=== PATIENT | female | born 1985 | race Caucasian/White ===

== ENCOUNTER 2018-01-14 18:24 | Inpatient (IN) | payer BC ==
[2018-01-14] MEDS ORDERED: OBEPIDURAL* 250 ML EPIDURAL ONE (19:12)
[2018-01-14 19:13] LABS: ABS Basophils 0.1 10^3/ul (0-0.2); ABS Eosinophils 0.2 10^3/ul (0-0.6); ABS Monocytes 1.2 10^3/ul (0-0.8); ABS Neutrophils 12.3 10^3/ul (1.5-7.7); ABS Nucleated RBC 0 10^3/ul; Eosinophil % 1.1 % (0-6); Hematocrit 36 % (35-47); Hemoglobin 12.1 g/dl (12.0-16.0); Lymphocyte % 17.8 % (25-47); Mean Corpuscular HGB Conc 34 g/dl (31-36); Mean Corpuscular Hemoglobin 32 pg (27-31); Mean Corpuscular Volume 95 fL (80-97); Mean Platelet Volume 9.8 um3 (7.4-10.4); Nucleated Red Blood Cells % 0.1; Platelet Count 190 10^3/ul (150-450); Red Blood Count 3.73 10^6/ul (4.00-5.40); Red Cell Distribution Width 14 % (10.5-15); White Blood Count 16.7 10^3/ul (3.5-10.8)
[2018-01-14] MEDS ORDERED: Clindamycin 900 MG IVPREMIX(* 900 MG/50 ML SDV IV SCH (19:30)
[2018-01-14] MEDS ORDERED: Famotidine TAB* 20 MG PO PRN (19:37)
[2018-01-14] MEDS ORDERED: EPHEDrine (Pressors)* 50 MG/ML VIAL IV PUSH PRN ×2 (19:37)
[2018-01-14] MEDS ORDERED: Phenylephrine IV* 40 MCG/ML 10 ML SYRINGE IV PUSH PRN ×2 (19:37)
[2018-01-14] MEDS ORDERED: Sodium Citrate/Citric Acid* 15 ML UDC PO PRN (19:37)
[2018-01-14] MEDS ORDERED: OBEPIDURAL* 250 ML EPIDURAL SCH (20:00)
--- NOTE | 2018-01-14 22:06 | HP ---
General Information - General Information Maternal Age: 32 Grav: 2 Para: 1 SAB: 0 IEA: 0 Estimated Due Date: 01/24/18 Determined By: Early Ultrasound Gestational Age in Weeks and Days: 38 Weeks and 4 Days Maternal Blood Type and Rh: B Positive - Results this Serology/RPR Result: Non-Reactive Rubella Result: Immune HBsAg Result: Negative HIV Result: Negative GBS Culture Result: Positive Past Medical History Delivery History: Hx Complicated Vaginal Delivery - Incompetent cervix with PTD , See Records Pertinent Past Medical History: See Records Past Medical History Comment: Anxiety Pertinent Past Surgical History: See Records Past Surgical History Comment: None Pertinent Family History: Non-Contributory - Antepartal Records Antepartal Records: Reviewed, Complicated by: - Incompetent cervix managed with cerclage(removed at 36 wks) Review of Systems Constitutional: Comfortable CV Complaint: No Respiratory: Shortness of Breath: No Gastrointestinal: No Nausea/Vomiting, Normal Bowel Movement Genitourinary: No Dysuria, No Bleeding, No Leaking Fluid Musculoskeletal: No Complaint Neurological: No Headache Movement: Normal Exam Allergies/Adverse Reactions: Allergies amoxicillin Allergy (Verified 12/27/17 09:49) Hives ciprofloxacin [From Cipro] Allergy (Verified 12/27/17 09:49) Vomiting Penicillins Allergy (Verified 12/27/17 09:49) Hives Temp 97.8 BP 121/76 p 96 RR 20 Pox 100% RA Lab Values - Entire Visit: Laboratory Tests 01/14/18 01/14/18 18:55 18:55 WBC 16.7 H RBC 3.73 L Hgb 12.1 Hct 36 MCV 95 MCH 32 H MCHC 34 RDW 14 Plt Count 190 MPV 9.8 Neut % (Auto) 73.4 Lymph % (Auto) 17.8 L Todd % (Auto) 7.4 H Eos % (Auto) 1.1 Baso % (Auto) 0.3 Absolute Neuts (auto) 12.3 H Absolute Lymphs (auto) 3.0 Absolute Monos (auto) 1.2 H Absolute Eos (auto) 0.2 Absolute Basos (auto) 0.1 Absolute Nucleated RBC 0 Nucleated RBC % 0.1 Blood Type B Positive Antibody Screen Negative - Measurements Height: 5 ft 9 in Weight: 178 lb Weight in lbs: 178.785941 Body Mass Index (BMI): 26.2 Pre- Weight: 132 lb 0.01 oz Weight Gained This : 45.99 lbs and 0.15 ozs - Exam Abdomen: No Upper Quadrant Pain Breast: Breast Exam Deferred CVA: No CVA Tenderness Extremities: No Edema Heart: Normal Rhythm/Heart Sounds HEENT: No Significant Findings Lungs: Clear Bilaterally Rectal: Rectal Exam Deferred Reflexes: DTR 2+ Thyroid: No Thyromegaly - Abdominal Exam Abdomen Exam: Non-Tender, Fundal Height Consistent with Dates - Ultrasound/Biophysical Profile Ultrasound Status: Not Done Targeted Exam Findings See L&D Outpatient Visit Provider Note for Findings: N/A Cervical Exam: 7cm Effacement: 90% Station: 0 Presenting Part: Vertex Membrane Status: AROM Amniotic Fluid Evaluation: Clear Bleeding/Discharge: None EFM Findings - External Monitor Findings Baseline Heart Rate: 130 External Monitor Findings: Accelerations Present, No Pattern of Variable or Late Decelerations Contractions: Regular, Moderate, < 45 Seconds Assessment/Plan - Reason for Visit Reason for Visit: Patient in labor - Obstetrical Risk Factors Obstetrical Risk Factors: GBS Positive - Plan Plan: Active Labor, Antibiotic Prophylaxis Plan Comment: Expect spontaneous vaginal delivery - Date/Time of Admission Date of Admission: 01/14/18 Time of Admission: 19:00
[2018-01-15] MEDS ORDERED: Oxytocin in LR* 20 UNITS/1,000 ML BAG IVPB ONE (03:16)
[2018-01-15] MEDS ORDERED: Acetaminophen TAB* 325 MG PO PRN (03:31)
[2018-01-15] MEDS ORDERED: Glycerin ADULT SUPP PR PRN (03:31)
[2018-01-15] MEDS ORDERED: Witch Hazel PAD* JAR TOPICAL PRN (03:31)
[2018-01-15] MEDS ORDERED: Dibucaine 1% 28.35 GM TUBE PR PRN (03:31)
[2018-01-15] MEDS ORDERED: Simethicone TAB* 80 MG TAB.CHEW PO SCH (08:30)
[2018-01-15] MEDS: Docusate CAP* 100 MG PO SCH ×3 (08:45→21:17)
[2018-01-15] MEDS: Ibuprofen TAB* 600 MG PO PRN ×2 (13:17→21:18)
[2018-01-16 07:21] LABS: ABS Basophils 0.1 10^3/ul (0-0.2); ABS Eosinophils 0.4 10^3/ul (0-0.6); ABS Lymphocytes 2.7 10^3/ul (1.0-4.8); ABS Monocytes 0.8 10^3/ul (0-0.8); ABS Neutrophils 8.9 10^3/ul (1.5-7.7); ABS Nucleated RBC 0 10^3/ul; Eosinophil % 3.2 % (0-6); Hematocrit 33 % (35-47); Hemoglobin 11.4 g/dl (12.0-16.0); Lymphocyte % 21.3 % (25-47); Mean Corpuscular HGB Conc 34 g/dl (31-36); Mean Corpuscular Hemoglobin 32 pg (27-31); Mean Corpuscular Volume 95 fL (80-97); Mean Platelet Volume 9.1 um3 (7.4-10.4); Nucleated Red Blood Cells % 0; Platelet Count 144 10^3/ul (150-450); Red Blood Count 3.51 10^6/ul (4.00-5.40); Red Cell Distribution Width 14 % (10.5-15); White Blood Count 12.9 10^3/ul (3.5-10.8)
[2018-01-16 07:57] VITALS: BP 102/53
[2018-01-16] MEDS: Ibuprofen TAB* 600 MG PO PRN ×2 (08:41→19:28)
[2018-01-16] MEDS: Docusate CAP* 100 MG PO SCH ×3 (08:41→19:28)
[2018-01-16] MEDS ORDERED: Ferrous Gluconate TAB* 324 MG TAB PO SCH (09:00)
[2018-01-17] MEDS: Docusate CAP* 100 MG PO SCH (08:59)
== END 2018-01-17 10:53 | disposition home or self-care (01) | DRG 560 ==
LOC: MCHOBOUT 18:24 → MCHOB 18:44
PROVIDERS: ADMIT Obstetrics & Gynecology; ATTEND Obstetrics & Gynecology
PROC: 10907ZC Drainage of Amniotic Fluid, Therapeutic from Products of Conception, Via Natural or Artificial Opening (ICD-10-PCS; principal; 2018-01-14)
PROC: 10E0XZZ Delivery of Products of Conception, External Approach (ICD-10-PCS; 2018-01-14)
PROC: 4A1HX4Z Monitoring of Products of Conception, Cardiac Electrical Activity, External Approach (ICD-10-PCS; 2018-01-14)
DX: O34.33 Maternal care for cervical incompetence, third trimester (principal); O99.824 Streptococcus B carrier state complicating childbirth; O70.0 First degree perineal laceration during delivery; Z3A.38 38 weeks gestation of pregnancy; Z37.0 Single live birth; Z88.0 Allergy status to penicillin; Z88.1 Allergy status to other antibiotic agents
CPT/HCPCS: 36415; 85025; 86850; 86900; 86901; A9270-GY

== ENCOUNTER 2021-05-01 22:05 | Inpatient (IN) ==
[2021-05-01] MEDS ORDERED: Buffered Lidocaine 1% SYRIN 1 ml INTRADERM ONE (23:11)
[2021-05-01] MEDS ORDERED: Lactated Ringers 1000 ml BAG 1,000 ML IV ONE (23:11)
[2021-05-01] MEDS ORDERED: Oxytocin 10 UNITS/ML 1 ML VIAL IM ONE (23:11)
[2021-05-01] MEDS ORDERED: Dibucaine 1% OINT 28.35 GM TUBE PR PRN (23:11)
[2021-05-01] MEDS ORDERED: witch hazeL 43% TOP.SOLN 200 ML PHA COMPOUND TOPICAL PRN (23:29)
[2021-05-01] MEDS ORDERED: Lactated Ringers 1000 ml BAG 1,000 ML IV SCH ×2 (23:45)
[2021-05-02 01:38] LABS: Rapid COVID-19 Molecular Undetected (Undetected)
[2021-05-02 01:47] LABS: Urine Benzodiazepine Screen None Detected (None Detect); Urine Cannabinoids Screen None Detected (None Detect); Urine Opiates Screen None Detected (None Detect)
[2021-05-02 06:51] LABS: ABS Basophils 0.1 10^3/ul (0-0.2); ABS Lymphocytes 2.4 10^3/ul (1.0-4.8); ABS Monocytes 1.2 10^3/ul (0-0.8); ABS Neutrophils 17.3 10^3/ul (1.5-7.7); Hematocrit 34 % (35-47); Hemoglobin 11.7 g/dL (12.0-16.0); Lymphocyte % 11.3 %; Mean Corpuscular HGB Conc 35 g/dL (31-36); Mean Corpuscular Hemoglobin 32 pg (27-31); Mean Corpuscular Volume 92 fL (80-97); Mean Platelet Volume 9.8 fL (7.4-10.4); Platelet Count 218 10^3/uL (150-450); Red Blood Count 3.67 10^6 /uL (3.70-4.87); Red Cell Distribution Width 15 % (10-15); White Blood Count 20.9 10^3/uL (3.5-10.8)
[2021-05-03 08:00] VITALS: BP 113/62
== END 2021-05-03 17:50 | disposition home or self-care (01) | DRG 560 ==
LOC: MCHOBOUT 22:05 → MCHOB 22:06
PROVIDERS: ADMIT Midwife; ATTEND Midwife